=== PATIENT | male | born 2000 | race Caucasian/White ===

== ENCOUNTER 2019-02-16 12:11 | Emergency (ER) | payer BC ==
[~2019-02-16] VITALS: Ht 180.3 cm; Wt 90.7 kg
[~2019-02-16 12:11] MED LIST: VIVANCE
[2019-02-16 12:20] VITALS: BP 117/71
--- NOTE | 2019-02-16 12:51 | RAD ---
EXAM: HAND RIGHT 3V. HISTORY: Right hand pain. Punched a door. COMPARISON: None. FINDINGS: There is soft tissue swelling along the dorsum of the metacarpophalangeal joints. No fractures are identified. Joint spaces and alignment are maintained. IMPRESSION: 1. Soft tissue swelling. No fracture. Electronically signed by: Itzel Peña MD (02/16/2019 12:48 PM) [facility]
[2019-02-16] MEDS ORDERED: MELO7.5T29 PO (12:55)
--- NOTE | 2019-02-16 12:57 | PHYS DOC ---
Past History Past Medical History: Other Additional Past Medical Histor: ADHD Past Surgical History: Appendectomy, Tonsillectomy, Other Smoking: Non-smoker Alcohol Use: None Drug Use: None Adult General Chief Complaint Chief Complaint: HAND PROBLEM HPI HPI Patient is a 18-year-old male presents with right, dominant, hand pain after punching a door approximately 45 minutes ago. He dented the door. He noted pain and swelling. Denies punching anyone. Denies any foreign bodies. Denies any laceration. Denies any numbness, tingling, or weakness. Pain is moderate in intensity. He has not taken anything for the pain at this time. It is worse with movement.[] Review of Systems Review of Systems Constitutional: Denies fever or chills [] Eyes: Denies change in visual acuity, redness, or eye pain [] HENT: Denies nasal congestion or sore throat [] Respiratory: Denies cough or shortness of breath [] Cardiovascular: No chest pain or palpitations[] GI: Denies abdominal pain, nausea, vomiting, bloody stools or diarrhea [] : Denies dysuria or hematuria [] Musculoskeletal: Denies back pain, see history of present illness[] Integument: Denies rash or skin lesions [] Neurologic: Denies headache, focal weakness or sensory changes [] Endocrine: Denies polyuria or polydipsia [] All other systems were reviewed and found to be within normal limits, except as documented in this note. Allergies Allergies Allergies Coded Allergies Type Severity Reaction Last Updated Verified No Known Drug Allergies 04/11/15 No Physical Exam Physical Exam Constitutional: Well developed, well nourished, no acute distress, non-toxic appearance. [] HENT: Normocephalic, atraumatic, bilateral external ears normal, oropharynx moist, no oral exudates, nose normal. [] Eyes: PERRLA, EOMI, conjunctiva normal, no discharge. [] Neck: Normal range of motion, no tenderness, supple, no stridor. [] Cardiovascular:Heart rate regular rhythm, no murmur [] Lungs & Thorax: Bilateral breath sounds clear to auscultation [] Abdomen: Not examined[] Skin: Warm, dry, no erythema, no rash. [] Back: No tenderness, no CVA tenderness. [] Extremities: Right handswelling over the third and fourth metacarpal phalangeal joint. Decreased active range of motion due to the swelling. There is no rotational deformity, FDS, FDP, and extensor mechanisms are intact. Tenderness to palpation over the third and fourth and fifth metacarpal phalangeal joint region. No proximal pain. A joint above and joined below were evaluated and were normal. Patient was distally neurovascularly intact. The other 3 extremities show: No tenderness, no cyanosis, no clubbing, ROM intact, no edema. [] Neurologic: Alert and oriented X 3, normal motor function, normal sensory function, no focal deficits noted. [] Psychologic: Affect normal, judgement normal, mood normal. [] Current Patient Data Vital Signs Vital Signs Date Time Temp Pulse Resp B/P (MAP) Pulse Ox O2 Delivery O2 Flow Rate FiO2 02/16/19 12:20 97.9 81 20 98 Room Air EKG EKG [] Radiology/Procedures Radiology/Procedures X-ray of the Right hand shows no evidence of a fracture or dislocation.[] Course & Med Decision Making Course & Med Decision Making Pertinent Labs and Imaging studies reviewed. (See chart for details) Medical decision making: There is no evidence of a fracture or dislocation. No evidence of significant ligamentous or tendinous injury. No evidence of neurologic or vascular compromise. ED course: Patient arrived, was placed in bed, and tolerated exam well. He was transported to and from radiology with any complications. He was treated with an Christian wrap for the contusion. He was distal neurovascularly intact after the Christian wrap application. He was discharged in improved condition with all questions answered.[] Dragon Disclaimer Dragon Disclaimer This electronic medical record was generated, in whole or in part, using a voice recognition dictation system. Departure Departure: Impression: Primary Impression: Contusion of right hand Disposition: HOME, SELF-CARE Condition: IMPROVED Referrals: VERONICA SMITH (PCP) Follow-up in 2 days Patient Instructions: Hand Contusion Additional Instructions: Follow-up with your regular doctor in 2 days. Take the medication as prescribed. Apply ice or 15 minutes at a time, at least 4 times a day for the first 3 days. Then switch to heat at least 4 times a day, for 15 minutes at a time. Return to the ER if worsening pain, weakness, or any other concerns. Scripts Meloxicam (MELOXICAM) 7.5 Mg Tablet 7.5 MG PO DAILY for PAIN, #20 TAB Prov: LINA HATFIELD DO 02/16/19 Problem Qualifiers Primary Impression: Contusion of right hand Encounter type: initial encounter Qualified Codes: S60.221A - Contusion of right hand, initial encounter LINA HATFIELD DO Feb 16, 2019 12:57
== END 2019-02-16 13:00 | disposition home or self-care (01) ==
LOC: ER 12:11
DX: S60.221A Contusion of right hand, initial encounter (principal); F90.9 Attention-deficit hyperactivity disorder, unspecified type; W22.8XXA Striking against or struck by other objects, initial encounter; Y93.89 Activity, other specified; Y92.89 Other specified places as the place of occurrence of the external cause; Y99.8 Other external cause status
CPT/HCPCS: 73130; 99284

== ENCOUNTER 2019-11-01 02:36 | Emergency (ER) | payer BC ==
[~2019-11-01] VITALS: Ht 185.4 cm; Wt 76.3 kg
[~2019-11-01 02:36] MED LIST changes: +MELO7.5T29 PO
[2019-11-01 02:40] VITALS: BP 109/57
--- NOTE | 2019-11-01 02:42 | PHYS DOC ---
Past History Past Medical History: Other Additional Past Medical Histor: ADHD Past Surgical History: Appendectomy, Tonsillectomy, Other Smoking: Non-smoker Alcohol Use: None Drug Use: None Adult General Chief Complaint Chief Complaint: ".. I woke up with really bad ear pain...".. " severe .. " HPI HPI Patient is a 19 year old male who presents with above hx and complaints of Lt. ear pain. No history of trauma. No history of travel or specific ill contacts. Immunosuppression. Pt. normally follows with [facility] for care. Review of Systems Review of Systems Constitutional: Denies fever or chills [] Eyes: Denies change in visual acuity, redness, or eye pain [] HENT: Complains of left ear pain Respiratory: Denies cough or shortness of breath [] Cardiovascular: No additional information not addressed in HPI [] GI: Denies abdominal pain, nausea, vomiting, bloody stools or diarrhea [] : Denies dysuria or hematuria [] Musculoskeletal: Denies back pain or joint pain [] Integument: Denies rash or skin lesions [] Neurologic: Denies headache, focal weakness or sensory changes [] Endocrine: Denies polyuria or polydipsia [] All other systems were reviewed and found to be within normal limits, except as documented in this note. Family History Family History Noncontributory presentation Current Medications Current Medications See nursing for home meds Allergies Allergies Allergies Coded Allergies Type Severity Reaction Last Updated Verified No Known Drug Allergies 04/11/15 No Physical Exam Physical Exam Constitutional: in acute distress, non-toxic appearance. [] HENT: Normocephalic, atraumatic, left ear canal slightly injected, fluid behind left TM and injected, oropharynx moist, no oral exudates, nose normal. [] Eyes: PERRLA, EOMI, conjunctiva normal, no discharge. [] Neck: Normal range of motion, no tenderness, supple, no stridor. [] Cardiovascular:Heart rate regular rhythm, no murmur [] Lungs & Thorax: Bilateral breath sounds equal apex with scattered wheezes on auscultation [] Abdomen: Bowel sounds normal, soft, no tenderness, no masses, no pulsatile masses. [] Old scar. Skin: Warm, dry, no erythema, no rash. [] Back: No tenderness, no CVA tenderness. [] Extremities: No tenderness, no cyanosis, no clubbing, ROM intact, no edema. [] Neurologic: Alert and oriented X 3, normal motor function, normal sensory function, no focal deficits noted. [] Psychologic: Affect anxious, judgement normal, mood normal. [] EKG EKG [] Radiology/Procedures Radiology/Procedures [] Course & Med Decision Making Course & Med Decision Making Pertinent Labs and Imaging studies reviewed. (See chart for details) Take Tylenol and ibuprofen for pain. Benadryl 50 mg up 4 times a day may be helpful. Use Cortisporin ear drops 2 drops 4 times a day to left ear. Take Keflex 500 mg 3 times a day. Follow-up primary. Return if any concerns. [] Impression| 1. Left otitis external and media Dragon Disclaimer Dragon Disclaimer This electronic medical record was generated, in whole or in part, using a voice recognition dictation system. Departure Departure: Disposition: 01 HOME/RESIDENCE PRIOR TO ADM Condition: STABLE Referrals: VERONICA SMITH (PCP) Scripts Cephalexin (KEFLEX) 500 Mg Capsule 500 MG PO TID for otitis for 7 Days, BOTTLE Prov: MIRTHA BECKER MD 11/01/19 Dwight Disclaimer This chart was dictated in whole or in part using Voice Recognition software in a busy, high-work load, and often noisy Emergency Department environment. It may contain unintended and wholly unrecognized errors or omissions. Dragon Disclaimer This chart was dictated in whole or in part using Voice Recognition software in a busy, high-work load, and often noisy Emergency Department environment. It may contain unintended and wholly unrecognized errors or omissions. MIRTHA BECKER MD Nov 01, 2019 02:42
[2019-11-01] MEDS ORDERED: CEPH-264 PO (02:50)
[2019-11-01] MEDS ORDERED: HYDROcodon/IBUPROFEN 7.5/200MG 1 TAB TABLET PO ONE (03:00)
[2019-11-01] MEDS ORDERED: CEPHALEXIN 250 MG CAPSULE PO ONE (03:00)
[2019-11-01] MEDS ORDERED: NEOMYCIN/POLYMYXIN/HC OTIC SUSPENSION 10ML BOTTLE. AS ONE (03:00)
[2019-11-01] MEDS ORDERED: diphenhydrAMINE HCL 25 MG CAPSULE PO ONE (03:15)
== END 2019-11-01 03:10 | disposition home or self-care (01) ==
LOC: ER 02:36
DX: H66.92 Otitis media, unspecified, left ear (principal); H60.62 Unspecified chronic otitis externa, left ear
CPT/HCPCS: 99284; Q0163